=== PATIENT | female | born 1995 | race Caucasian/White ===

== ENCOUNTER → 2021-01-03 19:02 | Observation (INO) ==
[2021-01-03 18:12] LABS: Basophils % 0.2 %; Hematocrit 35.2 % (35.3-44.9); Hemoglobin 12.6 g/dL (11.5-15.4); Immature Granulocytes % 0.4 % (0-4); Lymphocytes # 1.1 K/mcL (0.6-4.6); Lymphocytes % 10.2 %; Mean Corpuscular HGB Conc 35.8 g/dL (31.6-35.5); Mean Corpuscular Hemoglobin 32.4 pg (28.0-33.3); Mean Corpuscular Volume 90.5 fL (83.0-100.0); Mean Platelet Volume 10.3 fL (9.4-12.4); Monocytes # 1.1 K/mcL (0.0-1.3); Monocytes % 10.3 %; Neutrophils # 8.2 K/mcL (1.6-8.9); Platelet Count 206 K/mcL (140-400); Red Blood Count 3.89 M/mcL (3.82-4.97); Red Cell Distribution Width 12.3 % (11.5-14.5); Segmented Neutrophils % 78.9 %; White Blood Count 10.4 K/mcL (4.3-11.1)
[2021-01-03 18:21] LABS: INR 1.1; Prothrombin Time 11.8 Seconds (9.4-12.1)
[2021-01-03 18:24] LABS: Activated Partial Thrombo Time 26.9 Seconds (26.0-36.0)
[2021-01-03 18:39] LABS: Alanine Aminotransferase 8 Units/L (7-52); Aspartate Amino Transferase 15 Units/L (13-39); BUN/Creatinine Ratio 20 (6-26); Blood Urea Nitrogen 8 mg/dL (6-20); Lactate Dehydrogenase 120 Units/L (140-271); Uric Acid 3.8 mg/dL (2.3-7.6); eGFR For African Americans > 60 (> 60); eGFR For Non-African Americans > 60 (> 60)
[~2021-01-03 19:02] MED LIST: Ondansetron 4 MG/2 ML VIAL IVP ONE; Ringers Solution, Lactated 1,000 ML IVC ONE; Ringers Solution, Lactated 1,000 ML ONE
== END | disposition home or self-care (01) ==
LOC: 1NENULAB
PROVIDERS: ADMIT Advanced Practice Midwife; ATTEND Advanced Practice Midwife

== ENCOUNTER 2021-02-22 15:03 | Inpatient (IN) ==
[2021-02-22] MEDS ORDERED: Metoclopramide 10 MG/2 ML VIAL IVP PRN (15:12)
[2021-02-22] MEDS ORDERED: Ondansetron 4 MG/2 ML VIAL IVP PRN (15:12)
[2021-02-22] MEDS ORDERED: *HR* Nalbuphine 10 MG/ML AMPUL IV PRN (15:12)
[2021-02-22] MEDS ORDERED: Famotidine 20 MG/2 ML VIAL IVP PRN (15:12)
[2021-02-22] MEDS ORDERED: Naloxone 0.4 MG/ML INJ IVP PRN (15:12)
[2021-02-22] MEDS ORDERED: Lidocaine 1% 20 ML MDV INFILT PRN (15:12)
[2021-02-22] MEDS ORDERED: Ringers Solution, Lactated 1,000 ML IVC SCH (15:15)
[2021-02-22] MEDS ORDERED: miSOPROStoL 25 MCG TABLET PO PRN (16:03)
[2021-02-22 16:12] LABS: Basophils % 0.2 %; Hematocrit 37.7 % (35.3-44.9); Hemoglobin 13.5 g/dL (11.5-15.4); Immature Granulocytes % 0.6 % (0-4); Lymphocytes # 2.7 K/mcL (0.6-4.6); Lymphocytes % 30.7 %; Mean Corpuscular HGB Conc 35.8 g/dL (31.6-35.5); Mean Corpuscular Hemoglobin 32.1 pg (28.0-33.3); Mean Corpuscular Volume 89.8 fL (83.0-100.0); Mean Platelet Volume 12.8 fL (9.4-12.4); Monocytes # 0.5 K/mcL (0.0-1.3); Monocytes % 5.9 %; Neutrophils # 5.5 K/mcL (1.6-8.9); Platelet Count 186 K/mcL (140-400); Red Cell Distribution Width 12.5 % (11.5-14.5); Segmented Neutrophils % 62.6 %; White Blood Count 8.9 K/mcL (4.3-11.1)
[2021-02-22 16:14] LABS: Amphetamine Screen,Urine Negative ng/mL (Cutoff=1000); Barbiturate Screen,Urine Negative ng/mL (Cutoff=200); Benzodiazepines Screen,Urine Negative ng/mL (Cutoff=200); Cannabinoid Screen,Urine Negative ng/mL (Cutoff = 50); Cocaine Screen,Urine Negative ng/mL (Cutoff= 300); Opiate Screen,Urine Negative ng/mL (Cutoff=300); Phencyclidine Screen,Urine Negative ng/mL (Cutoff=25)
[2021-02-22 16:39] LABS: Influenza A PCR Negative (Negative); Influenza B PCR Negative (Negative); Resp. Syncytial Virus PCR Negative (Negative)
[2021-02-22 16:43] LABS: SARS-CoV-2 by PCR (In House) Positive (Negative)
[2021-02-22] MEDS ORDERED: Oxytocin 20 units/ LR 1000 mL 20 UNIT/1,000 ML BAG IVC SCH (20:30)
[2021-02-23] MEDS ORDERED: Rho Immune Globulin 1,500 UNIT SYRINGE IM PRN (12:42)
[2021-02-23] MEDS ORDERED: Ondansetron ODT 4 MG TAB.RAPDIS SL PRN (12:42)
[2021-02-23] MEDS ORDERED: Ibuprofen 600 MG TABLET PO SCH (12:42)
[2021-02-23] MEDS ORDERED: Benzocaine/Menthol 56 GM AEROSOL SPRAY TP PRN (12:42)
[2021-02-23] MEDS ORDERED: Oxytocin 20 units/ LR 1000 mL 20 UNIT/1,000 ML BAG IVC SCH (12:42)
[2021-02-23] MEDS ORDERED: Lanolin 7 G OINT...G. TP PRN (12:42)
[2021-02-23] MEDS: Acetaminophen 325 MG TABLET PO SCH ×2 (16:30→19:18)
[2021-02-23] MEDS: Prenatal Vit/FA 1 EACH TABLET PO SCH (16:30)
[2021-02-23] MEDS: Ibuprofen 600 MG TABLET PO SCH (16:30)
[2021-02-23 19:40] VITALS: O2SAT 98
[2021-02-24 07:23] VITALS: BP 94/63; PULSE 70; TEMP 97.7
[2021-02-24] MEDS: Ibuprofen 600 MG TABLET PO SCH (08:50)
[2021-02-24] MEDS: Acetaminophen 325 MG TABLET PO SCH (08:51)
[2021-02-24] MEDS: Prenatal Vit/FA 1 EACH TABLET PO SCH (08:52)
== END 2021-02-24 14:06 | disposition home or self-care (01) | DRG 805 ==
LOC: 1NENULAB 15:03 → 1NENUOBS 02-23 08:50
PROVIDERS: ADMIT Advanced Practice Midwife; ATTEND Advanced Practice Midwife